=== PATIENT | male | born 1950 | race Caucasian/White ===

== ENCOUNTER 2017-11-25 07:05 | Inpatient (IN) | payer MEDICARE, OTHER ==
[~2017-11-25 07:05] MED LIST: BUPIVACAINE 0.5%/EPI (SDV) 30 ML INJ; CEFAZOLIN 1 GM INJ; metroNIDAZOLE 500 MG/100 ML NS IVPB
[2017-11-25] MEDS ORDERED: LIDOCAINE 1% (MPF) 30 ML INJ (09:46)
[2017-11-25] MEDS ORDERED: MIDAZOLAM 1 MG/ML 2 ML INJ (11:13)
[2017-11-25] MEDS ORDERED: BUPIVACAINE 0.75%/DEXT (SPINAL) 2 ML INJ (11:56)
[2017-11-25] MEDS ORDERED: morphine SULFATE/PF (10 MG/10 ML) INJ (11:56)
[2017-11-25] MEDS: BUPIVACAINE 0.25% (MPF) 30 ML INJ (12:09)
[2017-11-25] MEDS: LIDOCAINE 1%/EPI 30 ML INJ (12:09)
[2017-11-25] MEDS ORDERED: ETOMIDATE 20 MG INJ (14:21)
[2017-11-25] MEDS ORDERED: ROCURONIUM 50 MG INJ (14:21)
[2017-11-25] MEDS ORDERED: LIDOCAINE 100 MG SYRINGE (14:21)
[2017-11-25] MEDS ORDERED: GLYCOPYRROLATE 0.4 MG INJ (14:21)
[2017-11-25] MEDS ORDERED: ONDANSETRON 4 MG INJ (14:21)
[2017-11-25] MEDS ORDERED: NEOSTIGMINE 3 MG/3 ML SYRINGE (14:21)
[2017-11-25] MEDS ORDERED: MECLIZINE 12.5 MG TAB PO (14:30)
[2017-11-25] MEDS ORDERED: ALPRAZOLAM 0.25 MG TAB PO (14:30)
[2017-11-25] MEDS ORDERED: morphine 2 MG INJ IV (14:30)
[2017-11-25] MEDS ORDERED: ONDANSETRON 4 MG INJ IV ×2 (14:30→15:00)
[2017-11-25] MEDS ORDERED: MEPERIDINE 25 MG INJ IV (15:00)
[2017-11-25] MEDS ORDERED: hydrALAzine 20 MG INJ IV (15:00)
[2017-11-25] MEDS ORDERED: LABETALOL HCL 20MG INJ IV (15:00)
[2017-11-25] MEDS ORDERED: NALOXONE (0.4 MG/ML) INJ IV (15:00)
[2017-11-25] MEDS ORDERED: HYDROmorphONE (0.2 MG/ML) 10ML SYG IV ×2 (15:00)
[2017-11-25] MEDS ORDERED: METOCLOPRAMIDE 10 MG INJ IV (15:00)
[2017-11-25] MEDS ORDERED: DIPHENHYDRAMINE 50 MG INJ IV (15:00)
[2017-11-25] MEDS ORDERED: FENTAnyl 50 MCG/ML VIAL IV (15:00)
[2017-11-25] MEDS: KETOROLAC 30 MG INJ IV ×2 (15:17→20:46)
[2017-11-25] MEDS: ACETAMINOPHEN 1000MG/100ML IV 100 ML IVPB ×2 (15:17→20:46)
[2017-11-25] MEDS: CEFAZOLIN 2 GM/50 ML (PMX) 50 ML IVPB ×3 (16:30→21:45)
[2017-11-25] MEDS: metroNIDAZOLE 500 MG/NS (PMX) 100 ML IVPB ×2 (16:30→22:17)
[2017-11-25] MEDS: TAMSULOSIN (SR) 0.4 MG CAP PO (20:46)
[2017-11-26] MEDS: ACETAMINOPHEN 1000MG/100ML IV 100 ML IVPB ×4 (02:03→20:23)
[2017-11-26] MEDS: KETOROLAC 30 MG INJ IV ×2 (02:03→09:37)
[2017-11-26 05:32] LABS: ADD MAN DIFF? NO
[2017-11-26 05:35] LABS: BASOPHIL # 0.1 10^3/ul (0.0-0.1); BASOPHILS % 0.5 % (0.0-2.0); EOSINOPHILS # 0.1 10^3/ul (0.0-0.5); EOSINOPHILS % 1.1 % (0.0-7.0); HEMATOCRIT 38.6 % (42.0-52.0); HEMOGLOBIN 12.9 g/dl (14.0-18.0); LYMPHOCYTES # 1.9 10^3/ul (0.8-2.9); MEAN CORPUSCULAR HEMOGLOBIN 30.9 pg (29.0-33.0); MEAN CORPUSCULAR HGB CONC 33.4 g/dl (32.0-37.0); MEAN CORPUSCULAR VOLUME 92.6 fl (82.0-101.0); MONOCYTES % 9.7 % (0.0-11.0); NEUTROPHIL # 7.2 10^3/ul (1.6-7.5); NEUTROPHILS % 70.2 % (39.0-77.0); PLATELET COUNT 200 10^3/UL (140-415); RED BLOOD COUNT 4.17 10^6/ul (4.70-6.10); RED CELL DISTRIBUTION WIDTH 13.8 % (11.5-14.5)
[2017-11-26 05:35] LABS: WHITE BLOOD COUNT 10.3 10^3/ul (4.8-10.8)
[2017-11-26] MEDS: CEFAZOLIN 2 GM/50 ML (PMX) 50 ML IVPB (05:43)
[2017-11-26] MEDS: PANTOPRAZOLE (EC) 40 MG TAB PO (05:43)
[2017-11-26 06:12] LABS: ANION GAP 9 (8-16); BLOOD UREA NITROGEN 13 mg/dl (7-20); CALCIUM 8.5 mg/dl (8.4-10.2); CARBON DIOXIDE 30 mmol/L (21-31); CHLORIDE 106 mmol/L (97-110); CREATININE 0.81 mg/dl (0.61-1.24); GLUCOSE 80 mg/dl (70-220); POTASSIUM 3.8 mmol/L (3.5-5.1); SODIUM 141 mmol/L (135-144)
[2017-11-26] MEDS: metroNIDAZOLE 500 MG/NS (PMX) 100 ML IVPB (06:22)
[2017-11-26] MEDS: SOLIFENACIN 5 MG TAB PO (09:32)
[2017-11-26] MEDS: FINASTERIDE 5 MG TAB PO (09:32)
[2017-11-26 09:34] LABS: ADD UMIC YES; UR ASCORBIC ACID NEGATIVE (NEGATIVE); UR BILIRUBIN (Dip) NEGATIVE (NEGATIVE); UR BLOOD (Dip) 3+ mg/dL (NEGATIVE); UR CLARITY CLEAR (CLEAR); UR COLOR STRAW (YELLOW); UR GLUCOSE (Dip) NEGATIVE (NEGATIVE); UR KETONES (Dip) TRACE mg/dL (NEGATIVE); UR LEUKOCYTE ESTERASE (Dip) 1+ Leu/ul (NEGATIVE); UR NITRITE (Dip) NEGATIVE (NEGATIVE); UR RBC 6 /HPF (0-5); UR SPECIFIC GRAVITY (Dip) 1.006 (1.003-1.030); UR TOTAL PROTEIN (Dip) NEGATIVE (NEGATIVE); UR UROBILINOGEN (Dip) NEGATIVE (NEGATIVE); UR WBC 2 /HPF (0-5)
[2017-11-26] MEDS ORDERED: DIPHENHYDRAMINE 50 MG INJ IM (10:30)
[2017-11-26] MEDS: DIPHENHYDRAMINE 50 MG INJ IV (11:50)
[2017-11-26] MEDS: TAMSULOSIN (SR) 0.4 MG CAP PO (20:23)
[2017-11-27] MEDS: ZOLPIDEM 5 MG TAB PO (02:42)
[2017-11-27] MEDS: ACETAMINOPHEN 1000MG/100ML IV 100 ML IVPB ×4 (02:42→20:27)
[2017-11-27] MEDS: PANTOPRAZOLE (EC) 40 MG TAB PO (05:25)
[2017-11-27 05:31] LABS: ADD MAN DIFF? NO
[2017-11-27 05:45] LABS: BASOPHIL # 0.1 10^3/ul (0.0-0.1); BASOPHILS % 0.8 % (0.0-2.0); EOSINOPHILS # 0.2 10^3/ul (0.0-0.5); EOSINOPHILS % 1.9 % (0.0-7.0); HEMATOCRIT 36.4 % (42.0-52.0); HEMOGLOBIN 12.3 g/dl (14.0-18.0); LYMPHOCYTES # 1.7 10^3/ul (0.8-2.9); LYMPHOCYTES % 17.3 % (15.0-51.0); MEAN CORPUSCULAR HEMOGLOBIN 30.8 pg (29.0-33.0); MEAN CORPUSCULAR HGB CONC 33.8 g/dl (32.0-37.0); MONOCYTES % 10.3 % (0.0-11.0); NEUTROPHIL # 6.7 10^3/ul (1.6-7.5); NEUTROPHILS % 69.3 % (39.0-77.0); PLATELET COUNT 201 10^3/UL (140-415); RED CELL DISTRIBUTION WIDTH 13.7 % (11.5-14.5)
[2017-11-27 05:45] LABS: WHITE BLOOD COUNT 9.7 10^3/ul (4.8-10.8)
[2017-11-27 06:03] LABS: ANION GAP 7 (8-16); BLOOD UREA NITROGEN 8 mg/dl (7-20); CALCIUM 8.6 mg/dl (8.4-10.2); CARBON DIOXIDE 29 mmol/L (21-31); CHLORIDE 110 mmol/L (97-110); CREATININE 0.58 mg/dl (0.61-1.24); GLUCOSE 89 mg/dl (70-220); POTASSIUM 3.4 mmol/L (3.5-5.1); SODIUM 143 mmol/L (135-144)
[2017-11-27 06:09] LABS: B-TYPE NATRIURETIC PEPTIDE 383 PG/ML (0-125)
[2017-11-27] MEDS: SOLIFENACIN 5 MG TAB PO (08:37)
[2017-11-27] MEDS: MELOXICAM 7.5 MG TAB PO (08:37)
[2017-11-27] MEDS: FINASTERIDE 5 MG TAB PO (08:37)
[2017-11-27] MEDS: POTASSIUM CHLORIDE 100 ML IVPB (10:53)
[2017-11-27] MEDS: TAMSULOSIN (SR) 0.4 MG CAP PO (20:27)
[2017-11-28] MEDS: ZOLPIDEM 5 MG TAB PO (00:20)
[2017-11-28] MEDS: ACETAMINOPHEN 1000MG/100ML IV 100 ML IVPB ×3 (02:56→14:51)
[2017-11-28 05:19] LABS: ADD MAN DIFF? NO
[2017-11-28 05:20] LABS: BASOPHIL # 0.1 10^3/ul (0.0-0.1); BASOPHILS % 0.7 % (0.0-2.0); EOSINOPHILS # 0.3 10^3/ul (0.0-0.5); EOSINOPHILS % 4.1 % (0.0-7.0); HEMATOCRIT 38.2 % (42.0-52.0); HEMOGLOBIN 12.7 g/dl (14.0-18.0); LYMPHOCYTES # 1.7 10^3/ul (0.8-2.9); LYMPHOCYTES % 21.5 % (15.0-51.0); MEAN CORPUSCULAR HEMOGLOBIN 30.5 pg (29.0-33.0); MEAN CORPUSCULAR HGB CONC 33.2 g/dl (32.0-37.0); MEAN CORPUSCULAR VOLUME 91.6 fl (82.0-101.0); MEAN PLATELET VOLUME 9.8 fl (7.4-10.4); MONOCYTE # 0.8 10^3/ul (0.3-0.9); MONOCYTES % 9.7 % (0.0-11.0); NEUTROPHIL # 5.1 10^3/ul (1.6-7.5); NEUTROPHILS % 63.8 % (39.0-77.0); PLATELET COUNT 201 10^3/UL (140-415); RED BLOOD COUNT 4.17 10^6/ul (4.70-6.10); RED CELL DISTRIBUTION WIDTH 13.5 % (11.5-14.5)
[2017-11-28] MEDS: PANTOPRAZOLE (EC) 40 MG TAB PO (05:37)
[2017-11-28 05:46] LABS: ANION GAP 12 (8-16); BLOOD UREA NITROGEN 8 mg/dl (7-20); CALCIUM 8.8 mg/dl (8.4-10.2); CARBON DIOXIDE 26 mmol/L (21-31); CHLORIDE 110 mmol/L (97-110); CREATININE 0.58 mg/dl (0.61-1.24); GLUCOSE 101 mg/dl (70-220); POTASSIUM 3.7 mmol/L (3.5-5.1); SODIUM 144 mmol/L (135-144)
[2017-11-28 05:53] LABS: B-TYPE NATRIURETIC PEPTIDE 460 PG/ML (0-125)
[2017-11-28] MEDS: FINASTERIDE 5 MG TAB PO (08:56)
[2017-11-28] MEDS: SOLIFENACIN 5 MG TAB PO (08:56)
[2017-11-28] MEDS: MELOXICAM 7.5 MG TAB PO (08:56)
== END 2017-11-28 17:30 | disposition home health service (06) | DRG 331 ==
LOC: REC 07:05 → MS1 16:00
PROC: 0DBN4ZZ Excision of Sigmoid Colon, Percutaneous Endoscopic Approach (ICD-10-PCS; principal; 2017-11-25 10:00)
PROC: 0DBP4ZZ Excision of Rectum, Percutaneous Endoscopic Approach (ICD-10-PCS; 2017-11-25 10:00)
PROC: 0DTJ4ZZ Resection of Appendix, Percutaneous Endoscopic Approach (ICD-10-PCS; 2017-11-25 10:00)
PROC: 0DJD8ZZ Inspection of Lower Intestinal Tract, Via Natural or Artificial Opening Endoscopic (ICD-10-PCS; 2017-11-25 10:00)
DX: C19 Malignant neoplasm of rectosigmoid junction (principal); I10 Essential (primary) hypertension; E78.5 Hyperlipidemia, unspecified; N40.0 Benign prostatic hyperplasia without lower urinary tract symptoms; K21.9 Gastro-esophageal reflux disease without esophagitis; K38.8 Other specified diseases of appendix; M19.90 Unspecified osteoarthritis, unspecified site; K40.90 Unilateral inguinal hernia, without obstruction or gangrene, not specified as recurrent; K43.9 Ventral hernia without obstruction or gangrene; J44.9 Chronic obstructive pulmonary disease, unspecified; Z87.891 Personal history of nicotine dependence; D64.9 Anemia, unspecified; H83.09 Labyrinthitis, unspecified ear; Z79.82 Long term (current) use of aspirin
CPT/HCPCS: 80048; 81001; 83880; 85025; 87086; 88304; 88309